=== PATIENT | female | born 1985 | race Caucasian/White ===

== ENCOUNTER 2016-11-04 12:38 | Emergency (ER) | payer OTHER ==
[2016-11-04] MEDS ORDERED: CYCLOBENZAPRINE 10 MG TAB ONE (13:43)
[2016-11-04] MEDS ORDERED: KETOROLAC 60 MG/2 ML VIAL IM ONE (13:44)
== END 2016-11-04 18:15 | disposition home or self-care (01) ==
LOC: ER 12:38
CPT/HCPCS: 72100; 72148; 81001; 81025; 87088; 96372